=== PATIENT | female | born 1945 | race Asian ===

== ENCOUNTER 2018-04-10 17:34 | Emergency (ER) | END 2018-04-10 19:41 | disposition home or self-care (01) | DX: R10.13 Epigastric pain (principal); Z90.49 Acquired absence of other specified parts of digestive tract; Z90.710 Acquired absence of both cervix and uterus; Z88.0 Allergy status to penicillin | CPT/HCPCS: 36415; 71045; 74176; 80048; 80076; 83605; 83690; 84484; 85025; 85730; 87040; 93005; 96361; 96374; 99284; J2405 ==